=== PATIENT | female | born 1970 | race African-American/Black ===

== ENCOUNTER 2018-06-25 15:44 | Inpatient (IN) | payer MEDICAID ==
[~2018-06-25] VITALS: Ht 167.6 cm; Wt 83.9 kg
[2018-06-25] MEDS ORDERED: FOLI0.4T2 PO (15:57)
[2018-06-25] MEDS ORDERED: VITAMINS (15:57)
[2018-06-25] MEDS ORDERED: ONDANSETRON HCL 4MG/2ML INJ IV STA (16:16)
[2018-06-25] MEDS ORDERED: KETOROLAC 30MG/ML VIAL IV STA (16:16)
[2018-06-25] MEDS ORDERED: SODIUM CHLORIDE 0.9% 1,000 ML IV ONE ×2 (16:16→21:30)
[2018-06-25 16:58] LABS: BASOPHILS % 0.3 % (0.0-2.0); EOSINOPHILS % 0.2 % (0.0-5.0); HEMATOCRIT. 45.5 % (36.0-48.0); LYMPHOCYTES % 13.5 % (20.0-50.0); MEAN CORPUSCULAR HEMOGLOBIN 37.9 pg (28.0-32.0); MEAN CORPUSCULAR VOLUME 115.2 fL (81.0-99.0); MEAN PLATELET VOLUME 9.3 fl (7.4-10.4); PLATELET 120 x1000/uL (130-400); RED BLOOD CELL COUNT 3.95 mill/uL (4.2-5.4); RED CELL DISTRIBUTION WIDTH 15.5 % (11.6-14.6)
[2018-06-25 17:01] LABS: CHLORIDE 100 mEq/L (98-107)
[2018-06-25 17:05] LABS: ETHANOL BLOOD < 10 mg/dL
[2018-06-25 17:16] LABS: PLATELET ESTIMATE DECREASED
[2018-06-25 17:19] LABS: HCG SCREEN NEGATIVE
[2018-06-25 17:23] LABS: CLARITY URINE CLOUDY (CLEAR); COLOR URINE DARK YELLOW (YELLOW); KETONES URINE 4+ (NEGATIVE); LEUKOCYTE ESTERASE URINE TRACE (NEGATIVE); NITRITE URINE NEGATIVE (NEGATIVE); OCCULT BLOOD URINE TRACE (NEGATIVE); PH URINE 5.5 (4.5-8.0); PROTEIN URINE 3+ (NEGATIVE); SPECIFIC GRAVITY URINE 1.024 (1.005-1.030)
[2018-06-25 17:34] LABS: PHENCYCLIDINE URINE SCREEN NEGATIVE (NEGATIVE)
[2018-06-25 17:35] LABS: *AMPHETAMINES SCREEN URINE NEGATIVE (NEGATIVE); *BARBITURATES SCREEN URINE NEGATIVE (NEGATIVE); *BENZODIAZEPINES SCREEN URINE NEGATIVE (NEGATIVE); *COCAINE SCREEN URINE NEGATIVE (NEGATIVE); CANNABINOID URINE SCREEN NEGATIVE (NEGATIVE); METHADONE URINE SCREEN NEGATIVE (NEGATIVE)
[2018-06-25 17:37] LABS: OPIATES URINE SCREEN NEGATIVE (NEGATIVE)
[2018-06-25] MEDS ORDERED: SODIUM CHLORIDE 0.9% 1,000 ML IV NR ×2 (18:15→21:30)
[2018-06-25] MEDS ORDERED: MORPHINE SULFATE 4 MG/ML CPJ (NOT FOR IM USE) IV NR (21:30)
[2018-06-25] MEDS ORDERED: ACETAMINOPHEN 650MG SUPP PR PRN (23:00)
[2018-06-25] MEDS ORDERED: HYDROCODONE/ACETAMINOPHEN 5/325MG TABLET PO PRN (23:00)
[2018-06-25] MEDS ORDERED: PANTOPRAZOLE SODIUM 40 MG/VIAL IV NR (23:00)
[2018-06-25] MEDS ORDERED: MORPHINE SULFATE 2 MG/ML CPJ (NOT FOR IM USE) IV PRN (23:00)
[2018-06-25] MEDS ORDERED: NA PHOS,M-B/NA PHOS,DI-BA ENEMA 118ML PR PRN (23:00)
[2018-06-25] MEDS ORDERED: ONDANSETRON HCL 4MG/2ML INJ IV PRN ×3 (23:00)
[2018-06-25] MEDS ORDERED: METOCLOPRAMIDE HCL 10MG/2ML VIAL IV PRN (23:00)
[2018-06-25] MEDS ORDERED: LORAZEPAM 2MG/ML CPJ IV PRN (23:00)
[2018-06-25] MEDS ORDERED: ACETAMINOPHEN 650MG/20.3ML UDC GT PRN (23:00)
[2018-06-25] MEDS ORDERED: MVI, ADULT NO.1 10 ML, FOLIC ACID 1 MG, THIAMINE HCL 100 MG in SODIUM CHLORIDE 0.9% 1,0... IV NR ×4 (23:00)
[2018-06-25] MEDS ORDERED: MAGNESIUM/ALUMINUM HYDROXIDE/SIMETHICONE 30ML UDC PO PRN (23:00)
[2018-06-25] MEDS ORDERED: DOCUSATE SODIUM 100MG CAPSULE PO PRN (23:00)
[2018-06-25] MEDS ORDERED: ACETAMINOPHEN 325MG TABLET PO PRN (23:00)
[2018-06-25] MEDS ORDERED: IPRATROPIUM/ALBUTEROL 0.5-3(2.5)MG/3ML NEB INH PRN (23:00)
[2018-06-25] MEDS ORDERED: CLONIDINE 0.1MG TABLET PO PRN (23:00)
[2018-06-25] MEDS ORDERED: DIPHENHYDRAMINE 50MG/ML VIAL IV PRN (23:00)
[2018-06-25] MEDS: DEXT 5%/0.45% NACL 1000ML 1,000 ML IV SCH (23:19)
[2018-06-26] VITALS: BP 131/95
[2018-06-26] MEDS: MORPHINE SULFATE 4 MG/ML CPJ (NOT FOR IM USE) IV PRN ×4 (02:40→20:47)
[2018-06-26 04:00] VITALS: BP 127/82
[2018-06-26] MEDS: SODIUM CHLORIDE 0.9% INJ 3ML FLUSH IVF SCH ×3 (06:06→20:47)
[2018-06-26 06:50] LABS: HEMATOCRIT. 37.7 % (36.0-48.0); HEMOGLOBIN. 12.7 g/dL (12.0-16.0); MEAN CORPUSCULAR HEMOGLOBIN 37.8 pg (28.0-32.0); MEAN CORPUSCULAR VOLUME 112.2 fL (81.0-99.0); MEAN PLATELET VOLUME 9.5 fl (7.4-10.4); PLATELET 99 x1000/uL (130-400); RED BLOOD CELL COUNT 3.36 mill/uL (4.2-5.4); RED CELL DISTRIBUTION WIDTH 15.5 % (11.6-14.6)
[2018-06-26 06:59] LABS: CHLORIDE 107 mEq/L (98-107)
[2018-06-26 07:06] LABS: LDL CHOLESTEROL 107 mg/dL (5-100)
[2018-06-26 07:08] LABS: HDL CHOLESTEROL 106 mg/dL (40-59)
[2018-06-26 08:00] VITALS: BP 139/96
[2018-06-26] MEDS: DEXT 5%/0.45% NACL 1000ML 1,000 ML IV SCH ×3 (08:46→20:48)
[2018-06-26] MEDS: ENOXAPARIN 40MG/0.4ML SYR SUBCUT SCH (09:00)
[2018-06-26] MEDS: POTASSIUM CHLORIDE 20MEQ TABLET SR PO PRN (10:26)
[2018-06-26 11:00] LABS: PLATELET ESTIMATE DECREASED
[2018-06-26 13:46] VITALS: BP 122/85
[2018-06-26 15:41] LABS: AMYLASE 80 IU/L (25-115)
[2018-06-26 16:00] VITALS: BP 122/83
[2018-06-26] MEDS ORDERED: POTASSIUM CHLORIDE 20MEQ TABLET SR PO PRN (16:15)
[2018-06-26] MEDS: FAMOTIDINE 20MG/2ML VIAL IV SCH ×2 (18:26→20:47)
[2018-06-26 20:00] VITALS: BP 130/80
[2018-06-26] MEDS ORDERED: PANTOPRAZOLE SODIUM 40 MG/VIAL IV SCH (21:00)
[2018-06-27] VITALS: BP 140/95
[2018-06-27 04:00] VITALS: BP 135/85
[2018-06-27] MEDS: MORPHINE SULFATE 4 MG/ML CPJ (NOT FOR IM USE) IV PRN ×3 (04:21→21:12)
[2018-06-27] MEDS: GUAIFENESIN 200MG/10ML SUGAR FREE UDC PO PRN ×2 (04:33→11:21)
[2018-06-27] MEDS: SODIUM CHLORIDE 0.9% INJ 3ML FLUSH IVF SCH ×3 (05:15→21:13)
[2018-06-27 08:00] VITALS: BP 132/89
[2018-06-27] MEDS: ENOXAPARIN 40MG/0.4ML SYR SUBCUT SCH (09:00)
[2018-06-27] MEDS: FAMOTIDINE 20MG/2ML VIAL IV SCH ×2 (09:44→21:11)
[2018-06-27] MEDS: METOPROLOL TARTRATE 25MG TABLET PO SCH ×2 (09:45→21:12)
[2018-06-27] MEDS: DEXT 5%/0.45% NACL 1000ML 1,000 ML IV SCH (09:47)
[2018-06-27 09:59] LABS: BASOPHILS % 0.5 % (0.0-2.0); EOSINOPHILS % 1.1 % (0.0-5.0); HEMATOCRIT. 36.4 % (36.0-48.0); HEMOGLOBIN. 12.4 g/dL (12.0-16.0); LYMPHOCYTES % 11.8 % (20.0-50.0); MEAN CORPUSCULAR VOLUME 111.8 fL (81.0-99.0); MEAN PLATELET VOLUME 9.6 fl (7.4-10.4); MONOCYTES % 12.4 % (2.0-8.0); NEUTROPHILS % 74.2 % (40.0-76.0); PLATELET 98 x1000/uL (130-400); RED BLOOD CELL COUNT 3.25 mill/uL (4.2-5.4); RED CELL DISTRIBUTION WIDTH 15.4 % (11.6-14.6)
[2018-06-27 10:13] LABS: CHLORIDE 108 mEq/L (98-107)
[2018-06-27] MEDS: POTASSIUM CHLORIDE 20MEQ TABLET SR PO PRN (10:17)
[2018-06-27 12:56] VITALS: BP 132/91
[2018-06-27 16:00] VITALS: BP 130/89
[2018-06-27 20:00] VITALS: BP 126/93
[2018-06-28] VITALS: BP 123/81
[2018-06-28] MEDS: DEXT 5%/0.45% NACL 1000ML 1,000 ML IV SCH (00:46)
[2018-06-28 04:00] VITALS: BP 130/80
[2018-06-28] MEDS: MORPHINE SULFATE 4 MG/ML CPJ (NOT FOR IM USE) IV PRN (05:53)
[2018-06-28] MEDS: GUAIFENESIN 200MG/10ML SUGAR FREE UDC PO PRN (05:53)
[2018-06-28] MEDS: SODIUM CHLORIDE 0.9% INJ 3ML FLUSH IVF SCH (05:53)
[2018-06-28 07:20] LABS: AMYLASE 33 IU/L (25-115)
[2018-06-28 08:00] VITALS: BP 131/98
[2018-06-28] MEDS ORDERED: POTASSIUM CHLORIDE 20MEQ TABLET SR PO SCH (08:00)
[2018-06-28] MEDS: FAMOTIDINE 20MG/2ML VIAL IV SCH (09:00)
[2018-06-28] MEDS: ENOXAPARIN 40MG/0.4ML SYR SUBCUT SCH (09:00)
[2018-06-28] MEDS: METOPROLOL TARTRATE 25MG TABLET PO SCH (09:49)
[2018-06-28 11:03] VITALS: BP 131/98
== END 2018-06-28 12:50 | disposition home or self-care (01) | DRG 282 ==
LOC: ER 15:44 → EDBEDREQ 22:19 → EDBEDREQTM 22:19 → EDBEDREQSVC 22:19 → 8WST 22:19 → ENRESERV 22:57
PROVIDERS: ADMIT Family Medicine; ATTEND Family Medicine
DX: K85.90 Acute pancreatitis without necrosis or infection, unspecified (principal); K76.0 Fatty (change of) liver, not elsewhere classified; E78.5 Hyperlipidemia, unspecified; E86.0 Dehydration; E87.6 Hypokalemia; I10 Essential (primary) hypertension; F17.210 Nicotine dependence, cigarettes, uncomplicated; G89.29 Other chronic pain; M54.9 Dorsalgia, unspecified; F41.9 Anxiety disorder, unspecified; R73.9 Hyperglycemia, unspecified; K82.8 Other specified diseases of gallbladder; F32.9 Major depressive disorder, single episode, unspecified; Z72.89 Other problems related to lifestyle
CPT/HCPCS: 36415; 71045; 74176; 76705; 80048; 80061; 80076; 80305; 80320; 82150; 83605; 84702; 84703; 96374; 99285; C1893; C9113; J1650; J1885; J2270; J2405; J3411; J3490; J7030; G0480

== ENCOUNTER 2019-09-27 13:17 | Inpatient (IN) | payer MEDICAID ==
[~2019-09-27] VITALS: Ht 168.9 cm; Wt 93.0 kg
[~2019-09-27 13:17] MED LIST: FOLI0.4T2 PO; VITAMINS
[2019-09-27] MEDS ORDERED: FAMOTIDINE 20MG/2ML VIAL IV STA (15:03)
[2019-09-27] MEDS ORDERED: ONDANSETRON HCL 4MG/2ML INJ IV STA (15:03)
[2019-09-27] MEDS ORDERED: SODIUM CHLORIDE 0.9% 1,000 ML IV ONE ×2 (15:03→18:30)
[2019-09-27] MEDS ORDERED: KETOROLAC 30MG/ML VIAL IV STA (15:03)
[2019-09-27] MEDS ORDERED: LORAZEPAM 2MG/ML CPJ IV ONE (15:15)
[2019-09-27] MEDS ORDERED: MORPHINE SULFATE 2 MG/ML CPJ (NOT FOR IM USE) IV ONE (15:15)
[2019-09-27 15:36] LABS: BASOPHILS % 0.5 % (0.0-2.0); EOSINOPHILS % 0.1 % (0.0-5.0); HEMATOCRIT. 46.3 % (36.0-48.0); MEAN CORPUSCULAR HEMOGLOBIN 36.6 pg (28.0-32.0); MEAN CORPUSCULAR VOLUME 105.6 fL (81.0-99.0); MEAN PLATELET VOLUME 8.3 fl (7.4-10.4); MONOCYTES % 10.1 % (2.0-8.0); NEUTROPHILS % 74.3 % (40.0-76.0); PLATELET 306 x1000/uL (130-400); RED BLOOD CELL COUNT 4.39 mill/uL (4.2-5.4); RED CELL DISTRIBUTION WIDTH 19.5 % (11.6-14.6)
[2019-09-27 15:39] LABS: CHLORIDE 102 mEq/L (98-107)
[2019-09-27 15:44] LABS: ETHANOL BLOOD < 10 mg/dL; INR 1.1; PROTHROMBIN TIME 11.9 sec (9.6-11.0)
[2019-09-27 16:45] LABS: CLARITY URINE CLEAR (CLEAR); COLOR URINE YELLOW (YELLOW); KETONES URINE 4+ (NEGATIVE); LEUKOCYTE ESTERASE URINE TRACE (NEGATIVE); NITRITE URINE NEGATIVE (NEGATIVE); OCCULT BLOOD URINE NEGATIVE (NEGATIVE); PH URINE 5.5 (4.5-8.0); PROTEIN URINE 1+ (NEGATIVE); SPECIFIC GRAVITY URINE 1.023 (1.005-1.030)
[2019-09-27 17:38] LABS: *AMPHETAMINES SCREEN URINE NEGATIVE (NEGATIVE)
[2019-09-27 17:39] LABS: *BARBITURATES SCREEN URINE NEGATIVE (NEGATIVE); *BENZODIAZEPINES SCREEN URINE NEGATIVE (NEGATIVE); *COCAINE SCREEN URINE NEGATIVE (NEGATIVE); METHADONE URINE SCREEN NEGATIVE (NEGATIVE); PHENCYCLIDINE URINE SCREEN NEGATIVE (NEGATIVE)
[2019-09-27 17:41] LABS: OPIATES URINE SCREEN PRESUMTIVE POSITIVE (NEGATIVE)
[2019-09-27 17:42] LABS: CANNABINOID URINE SCREEN NEGATIVE (NEGATIVE)
[2019-09-27] MEDS ORDERED: ONDANSETRON HCL 4MG/2ML INJ IV ONE (18:30)
[2019-09-27] MEDS ORDERED: MORPHINE SULFATE 4 MG/ML CPJ (NOT FOR IM USE) IV ONE (18:30)
[2019-09-27] MEDS ORDERED: ONDANSETRON HCL 4MG/2ML INJ IV PRN (23:15)
[2019-09-27] MEDS ORDERED: IPRATROPIUM/ALBUTEROL 0.5-3(2.5)MG/3ML NEB HHN PRN (23:15)
[2019-09-27] MEDS ORDERED: DOCUSATE SODIUM 100MG CAPSULE PO PRN (23:15)
[2019-09-27] MEDS ORDERED: ACETAMINOPHEN 325MG TABLET PO PRN (23:15)
[2019-09-27] MEDS ORDERED: NA PHOS,M-B/NA PHOS,DI-BA ENEMA 118ML PR PRN (23:15)
[2019-09-27] MEDS ORDERED: MAGNESIUM/ALUMINUM HYDROXIDE/SIMETHICONE 30ML UDC PO PRN (23:15)
[2019-09-27] MEDS ORDERED: DIPHENHYDRAMINE 50MG/ML VIAL IV PRN (23:15)
[2019-09-27] MEDS ORDERED: GUAIFENESIN 200MG/10ML SUGAR FREE UDC PO PRN (23:15)
[2019-09-27] MEDS ORDERED: HYDRALAZINE 20MG/ML VIAL IV PRN (23:15)
[2019-09-27] MEDS ORDERED: CEFTRIAXONE 1 G PREMIX 50 ML IV SCH (23:15)
[2019-09-27] MEDS ORDERED: LORAZEPAM 2MG/ML CPJ IV PRN (23:15)
[2019-09-27] MEDS ORDERED: IOHEXOL-300 100 ML BOTTLE ONE (23:20)
[2019-09-27] MEDS ORDERED: HYDRALAZINE 10 MG in SODIUM CHLORIDE 0.9% 49.5 ML IV PRN (23:30)
[2019-09-27] MEDS: DEXT 5%/0.45% NACL 1000ML 1,000 ML IV SCH (23:45)
[2019-09-28] VITALS: BP 170/124
[2019-09-28] MEDS: HYDROCODONE/ACETAMINOPHEN 10/325MG TABLET PO PRN ×4 (00:30→21:32)
[2019-09-28] MEDS: CLONIDINE 0.1MG TABLET PO PRN (00:30)
[2019-09-28 01:21] VITALS: BP 170/124
[2019-09-28] MEDS ORDERED: CEFTRIAXONE 1,000 MG in DEXTROSE 5% WATER 50 ML IV SCH ×2 (02:00→21:00)
[2019-09-28 04:00] VITALS: BP 157/107
[2019-09-28] MEDS: SODIUM CHLORIDE 0.9% INJ 3ML FLUSH IVF SCH ×3 (06:03→22:00)
[2019-09-28] MEDS: DEXT 5%/0.45% NACL 1000ML 1,000 ML IV SCH ×2 (06:51→13:05)
[2019-09-28 07:49] LABS: CHLORIDE 103 mEq/L (98-107)
[2019-09-28 08:04] LABS: BASOPHILS % 0.2 % (0.0-2.0); EOSINOPHILS % 0.2 % (0.0-5.0); HEMATOCRIT. 39.7 % (36.0-48.0); HEMOGLOBIN. 13.4 g/dL (12.0-16.0); LYMPHOCYTES % 10.5 % (20.0-50.0); MEAN CORPUSCULAR HEMOGLOBIN 36.5 pg (28.0-32.0); MEAN CORPUSCULAR VOLUME 107.9 fL (81.0-99.0); MEAN PLATELET VOLUME 8.4 fl (7.4-10.4); MONOCYTES % 11.6 % (2.0-8.0); NEUTROPHILS % 77.5 % (40.0-76.0); PLATELET 250 x1000/uL (130-400); RED BLOOD CELL COUNT 3.68 mill/uL (4.2-5.4); RED CELL DISTRIBUTION WIDTH 19.8 % (11.6-14.6)
[2019-09-28] MEDS: MORPHINE SULFATE 2 MG/ML CPJ (NOT FOR IM USE) IV PRN ×2 (09:07→17:34)
[2019-09-28] MEDS: ENOXAPARIN 30MG/0.3ML SYR SUBCUT SCH ×2 (09:08→21:41)
[2019-09-28 20:00] VITALS: BP 133/80
[2019-09-29] VITALS: BP 130/97
[2019-09-29] MEDS: MORPHINE SULFATE 2 MG/ML CPJ (NOT FOR IM USE) IV PRN ×2 (02:12→14:25)
[2019-09-29] MEDS ORDERED: ABAC1TAB14 MT (03:57)
[2019-09-29] MEDS ORDERED: ACET-2708 PO (03:59)
[2019-09-29 04:00] VITALS: BP 116/69
[2019-09-29] MEDS ORDERED: BACL-141 MT (04:07)
[2019-09-29] MEDS ORDERED: AMLO10TA80 MT (04:09)
[2019-09-29] MEDS ORDERED: PROP20TA7 MT (04:12)
[2019-09-29] MEDS ORDERED: BUSP15TA3 MT (04:14)
[2019-09-29] MEDS ORDERED: OMEP40CA12 MT (04:17)
[2019-09-29] MEDS ORDERED: FISH OIL (04:18)
[2019-09-29] MEDS ORDERED: [UNRECOGNIZED DRUG - OTHER] (04:26)
[2019-09-29] MEDS ORDERED: CENTRUM WOMEN (04:26)
[2019-09-29] MEDS ORDERED: [UNRECOGNIZED DRUG - OTHER] (04:27)
[2019-09-29 08:00] VITALS: BP 142/94
[2019-09-29] MEDS: ENOXAPARIN 30MG/0.3ML SYR SUBCUT SCH (09:22)
[2019-09-29] MEDS: CLONIDINE 0.1MG TABLET PO PRN (09:23)
[2019-09-29] MEDS: DEXT 5%/0.45% NACL 1000ML 1,000 ML IV SCH (10:22)
[2019-09-29] MEDS: HYDROCODONE/ACETAMINOPHEN 10/325MG TABLET PO PRN (10:24)
[2019-09-29 12:00] VITALS: BP 128/92
[2019-09-29] MEDS: SODIUM CHLORIDE 0.9% INJ 3ML FLUSH IVF SCH (13:27)
[2019-09-29 14:18] VITALS: BP 128/92
[2019-09-29 14:25] VITALS: BP 128/92
== END 2019-09-29 15:26 | disposition home or self-care (01) | DRG 282 ==
LOC: ER 13:17 → 6EST 20:26 → EDBEDREQTM 20:32 → EDBEDREQ 20:32 → ENRESERV 21:24
PROVIDERS: ADMIT Internal Medicine; ATTEND Internal Medicine
DX: K85.90 Acute pancreatitis without necrosis or infection, unspecified (principal); E78.5 Hyperlipidemia, unspecified; I10 Essential (primary) hypertension; R74.0 Nonspecific elevation of levels of transaminase and lactic acid dehydrogenase [LDH]; Z98.51 Tubal ligation status; F17.210 Nicotine dependence, cigarettes, uncomplicated; Z21 Asymptomatic human immunodeficiency virus [HIV] infection status
CPT/HCPCS: 36415; 74177; 80053; 80305; 80320; 81003; 85025; 93005; 96374; 99285; J0696; J1650; J1885; J2060; J2270; J2405; J3490; J7030; J7060; Q9967; G0480